=== PATIENT | female | born 1960 | race Caucasian/White ===

== ENCOUNTER 2019-09-30 20:05 | Inpatient (IN) | payer SELFPAY ==
[~2019-09-30] VITALS: Ht 167.6 cm; Wt 90.9 kg
[2019-09-30 20:20] VITALS: BP 160/90
[2019-09-30 20:35] LABS: HEMATOCRIT 49.5 % (37.0-47.0); HEMOGLOBIN 16.8 g/dl (12.0-16.0); MEAN CELL VOLUME 86.7 fl (81.0-99.0); MEAN CORPUSCULAR HGB 29.4 pg (27.0-31.0); MEAN CORPUSCULAR HGB CONC 33.9 g/dl (33.0-37.0); PLATELET COUNT AUTOMATED 330 10*3/uL (130-400); RED BLOOD COUNT 5.71 10*6/uL (4.10-5.10); RED CELL DISTRI WIDTH 12.9 % (0-14.5)
[2019-09-30 20:44] VITALS: BP 153/75
[2019-09-30 20:45] LABS: ACT PARTIAL THROMBO TIME 23.4 SECONDS (20.0-32.1); INTERNATIONAL NORM RATIO 0.9 (2.0-3.5)
[2019-09-30 20:51] LABS: ALBUMIN 3.8 gm/dl (3.1-4.5); ALKALINE PHOSPHATASE 111 U/L (45-117); BUN 16 mg/dl (7-24); CHLORIDE 103 mmol/L (98-107); CREATININE 0.81 mg/dL (0.55-1.02); POTASSIUM 5.6 mmol/L (3.5-5.1); SGOT/AST 39 IU/L (3-35); SGPT/ALT 26 U/L (12-78); SODIUM 134 mmol/L (136-145); TOTAL PROTEIN 8.3 gm/dL (6.4-8.2)
[2019-09-30 20:52] LABS: TROPONIN I < 0.015 ng/ml (<0.045)
[2019-09-30 20:56] LABS: ATYPICAL LYMPHS 1 % (0-0); BURR CELLS FEW; TOTAL CELLS COUNTED 100 #CELLS
[2019-09-30 20:57] LABS: PLATELET SUFFICIENCY NORMAL (NORMAL)
[2019-09-30 21:35] LABS: ARTERIAL BLOOD GAS PH 7.231 (7.35-7.45)
[2019-09-30 22:13] LABS: CLARITY CLEAR (CLEAR); COLOR YELLOW (YELLOW)
[2019-09-30 22:14] LABS: BILIRUBIN NEGATIVE (NEGATIVE); BLOOD 3+ (NEGATIVE); GLUCOSE 3+ (NEGATIVE); KETONE TRACE (NEGATIVE); LEUKO ESTERASE NEGATIVE (NEGATIVE); NITRITE NEGATIVE (NEGATIVE); SPECIFIC GRAVITY 1.025 (1.005-1.030); UROBILINOGEN 0.2 E.U./dl (0.2-1.0); WBC 0-2 wbc/hpf (0-5)
[2019-09-30 22:15] LABS: RBC 16-20 rbc/hpf (0-2)
[2019-09-30 22:35] VITALS: BP 95/58
[2019-09-30 23:00] VITALS: BP 98/57
[2019-10-01] VITALS (12 sets, daily range): BP systolic 97–138; BP diastolic 56–86
[2019-10-01 00:25] LABS: ABG BASE EXCESS -4.7 mmol/L (-2.0-2.0); ARTERIAL BLOOD GAS PH 7.354 (7.35-7.45)
[2019-10-01 06:02] LABS: ALBUMIN 3.1 gm/dl (3.1-4.5); ALKALINE PHOSPHATASE 86 U/L (45-117); BUN 16 mg/dl (7-24); CHLORIDE 105 mmol/L (98-107); PHOSPHOROUS 3.6 mg/dL (2.5-4.9); SGOT/AST 22 IU/L (3-35); SGPT/ALT 19 U/L (12-78); SODIUM 136 mmol/L (136-145); TOTAL PROTEIN 6.3 gm/dL (6.4-8.2)
[2019-10-01 06:13] LABS: POTASSIUM 3.8 mmol/L (3.5-5.1)
[2019-10-01 06:18] LABS: BASO # 0.1 10*3/uL (0.0-0.1); BASO % 0.4 % (0.0-1.0); EOS # 0.1 10*3/uL (0.0-0.4); EOS % 0.5 % (1.0-4.0); HEMATOCRIT 42.8 % (37.0-47.0); HEMOGLOBIN 14.1 g/dl (12.0-16.0); LYMPH # 2.1 10*3/uL (1.3-4.4); LYMPH % 14.1 % (27.0-41.0); MEAN CELL VOLUME 87.9 fl (81.0-99.0); MEAN CORPUSCULAR HGB CONC 32.9 g/dl (33.0-37.0); MONO # 1.2 10*3/uL (0.1-1.0); MONO % 7.7 % (3.0-9.0); NEUT # 11.5 10*3/uL (2.3-7.9); NEUT % 76.8 % (47.0-73.0); PLATELET COUNT AUTOMATED 294 10*3/uL (130-400); RED BLOOD COUNT 4.87 10*6/uL (4.10-5.10); RED CELL DISTRI WIDTH 13.1 % (0-14.5)
[2019-10-01 07:52] LABS: ABG BASE EXCESS -1.6 mmol/L (-2.0-2.0); ARTERIAL BLOOD GAS PH 7.409 (7.35-7.45)
[2019-10-02] VITALS (12 sets, daily range): BP systolic 103–129; BP diastolic 35–82
[2019-10-02 08:16] LABS: ABG BASE EXCESS 0.4 mmol/L (-2.0-2.0); ARTERIAL BLOOD GAS PH 7.452 (7.35-7.45)
[2019-10-02 10:34] LABS: BASO # 0.1 10*3/uL (0.0-0.1); BASO % 0.4 % (0.0-1.0); EOS # 0.3 10*3/uL (0.0-0.4); EOS % 2.3 % (1.0-4.0); HEMATOCRIT 39.6 % (37.0-47.0); LYMPH # 1.9 10*3/uL (1.3-4.4); LYMPH % 16.5 % (27.0-41.0); MEAN CELL VOLUME 87.8 fl (81.0-99.0); MEAN CORPUSCULAR HGB 28.8 pg (27.0-31.0); MEAN CORPUSCULAR HGB CONC 32.8 g/dl (33.0-37.0); MEAN PLATELET VOLUME 9.8 fl (9.6-12.3); MONO % 8.9 % (3.0-9.0); NEUT # 8.4 10*3/uL (2.3-7.9); NEUT % 71.6 % (47.0-73.0); PLATELET COUNT AUTOMATED 238 10*3/uL (130-400); RED BLOOD COUNT 4.51 10*6/uL (4.10-5.10); RED CELL DISTRI WIDTH 13.3 % (0-14.5); WHITE BLOOD COUNT 11.7 10*3/uL (4.8-10.8)
[2019-10-02 10:50] LABS: ALBUMIN 2.6 gm/dl (3.1-4.5); ALKALINE PHOSPHATASE 79 U/L (45-117); BUN 22 mg/dl (7-24); CHLORIDE 106 mmol/L (98-107); PHOSPHOROUS 2.7 mg/dL (2.5-4.9); POTASSIUM 3.3 mmol/L (3.5-5.1); SGOT/AST 16 IU/L (3-35); SGPT/ALT 16 U/L (12-78); SODIUM 137 mmol/L (136-145); TOTAL PROTEIN 5.8 gm/dL (6.4-8.2)
[2019-10-02 10:52] LABS: TROPONIN I 0.115 ng/ml (<0.045)
[2019-10-03] VITALS (10 sets, daily range): BP systolic 114–154; BP diastolic 62–88
[2019-10-03 06:17] LABS: BASO % 0.2 % (0.0-1.0); EOS # 0.1 10*3/uL (0.0-0.4); EOS % 0.4 % (1.0-4.0); HEMATOCRIT 40.9 % (37.0-47.0); HEMOGLOBIN 13.7 g/dl (12.0-16.0); LYMPH # 1.8 10*3/uL (1.3-4.4); LYMPH % 14.1 % (27.0-41.0); MEAN CELL VOLUME 85.6 fl (81.0-99.0); MEAN CORPUSCULAR HGB 28.7 pg (27.0-31.0); MEAN CORPUSCULAR HGB CONC 33.5 g/dl (33.0-37.0); MEAN PLATELET VOLUME 10.1 fl (9.6-12.3); MONO # 0.9 10*3/uL (0.1-1.0); MONO % 6.9 % (3.0-9.0); NEUT # 9.9 10*3/uL (2.3-7.9); NEUT % 77.9 % (47.0-73.0); PLATELET COUNT AUTOMATED 269 10*3/uL (130-400); RED BLOOD COUNT 4.78 10*6/uL (4.10-5.10); RED CELL DISTRI WIDTH 12.9 % (0-14.5); WHITE BLOOD COUNT 12.7 10*3/uL (4.8-10.8)
[2019-10-03 06:35] LABS: ALBUMIN 2.9 gm/dl (3.1-4.5); BUN 21 mg/dl (7-24); CHLORIDE 104 mmol/L (98-107); CREATININE 0.52 mg/dL (0.55-1.02); PHOSPHOROUS 3.2 mg/dL (2.5-4.9); SGOT/AST 17 IU/L (3-35); SGPT/ALT 19 U/L (12-78); SODIUM 138 mmol/L (136-145)
[2019-10-03 06:38] LABS: ALKALINE PHOSPHATASE 83 U/L (45-117); TOTAL PROTEIN 6.5 gm/dL (6.4-8.2)
[2019-10-03 06:40] LABS: POTASSIUM 3.4 mmol/L (3.5-5.1)
[2019-10-03 07:48] LABS: ARTERIAL BLOOD GAS PH 7.439 (7.35-7.45)
[2019-10-03 14:27] LABS: ABG BASE EXCESS 0.2 mmol/L (-2.0-2.0); ARTERIAL BLOOD GAS PH 7.442 (7.35-7.45)
[2019-10-04] VITALS: BP 94/51
[2019-10-04 04:00] VITALS: BP 110/71
[2019-10-04 04:17] LABS: BASO # 0.1 10*3/uL (0.0-0.1); BASO % 0.5 % (0.0-1.0); EOS # 0.4 10*3/uL (0.0-0.4); EOS % 2.8 % (1.0-4.0); HEMATOCRIT 39.1 % (37.0-47.0); HEMOGLOBIN 13.4 g/dl (12.0-16.0); LYMPH # 2.6 10*3/uL (1.3-4.4); LYMPH % 21.4 % (27.0-41.0); MEAN CELL VOLUME 85.9 fl (81.0-99.0); MEAN CORPUSCULAR HGB 29.5 pg (27.0-31.0); MEAN CORPUSCULAR HGB CONC 34.3 g/dl (33.0-37.0); MEAN PLATELET VOLUME 9.9 fl (9.6-12.3); MONO # 1.1 10*3/uL (0.1-1.0); MONO % 8.8 % (3.0-9.0); NEUT # 8.1 10*3/uL (2.3-7.9); NEUT % 66.1 % (47.0-73.0); PLATELET COUNT AUTOMATED 256 10*3/uL (130-400); RED BLOOD COUNT 4.55 10*6/uL (4.10-5.10); WHITE BLOOD COUNT 12.3 10*3/uL (4.8-10.8)
[2019-10-04 04:35] LABS: ALKALINE PHOSPHATASE 82 U/L (45-117); BUN 23 mg/dl (7-24); CHLORIDE 106 mmol/L (98-107); CREATININE 0.42 mg/dL (0.55-1.02); PHOSPHOROUS 2.2 mg/dL (2.5-4.9); SGOT/AST 25 IU/L (3-35); SGPT/ALT 18 U/L (12-78); SODIUM 141 mmol/L (136-145); TOTAL PROTEIN 6.7 gm/dL (6.4-8.2)
[2019-10-04 05:24] LABS: ABG BASE EXCESS 1.5 mmol/L (-2.0-2.0); ARTERIAL BLOOD GAS PH 7.51 (7.35-7.45)
[2019-10-04 08:00] VITALS: BP 134/79
[2019-10-04 12:00] VITALS: BP 131/74
[2019-10-04 15:28] VITALS: BP 127/72
[2019-10-04 20:00] VITALS: BP 141/85
[2019-10-05] VITALS: BP 128/84
[2019-10-05 04:00] VITALS: BP 126/92
[2019-10-05 06:19] LABS: BASO # 0.1 10*3/uL (0.0-0.1); BASO % 0.8 % (0.0-1.0); EOS # 0.6 10*3/uL (0.0-0.4); EOS % 5.8 % (1.0-4.0); HEMATOCRIT 41.8 % (37.0-47.0); HEMOGLOBIN 13.9 g/dl (12.0-16.0); MEAN CELL VOLUME 85.3 fl (81.0-99.0); MEAN CORPUSCULAR HGB 28.4 pg (27.0-31.0); MEAN CORPUSCULAR HGB CONC 33.3 g/dl (33.0-37.0); MEAN PLATELET VOLUME 9.8 fl (9.6-12.3); MONO % 9.3 % (3.0-9.0); NEUT # 5.7 10*3/uL (2.3-7.9); NEUT % 54.6 % (47.0-73.0); PLATELET COUNT AUTOMATED 289 10*3/uL (130-400); RED CELL DISTRI WIDTH 12.9 % (0-14.5); WHITE BLOOD COUNT 10.4 10*3/uL (4.8-10.8)
[2019-10-05 06:51] LABS: ALBUMIN 3.1 gm/dl (3.1-4.5); BUN 28 mg/dl (7-24); CHLORIDE 107 mmol/L (98-107); PHOSPHOROUS 2.6 mg/dL (2.5-4.9); POTASSIUM 3.6 mmol/L (3.5-5.1); SGOT/AST 19 IU/L (3-35); SGPT/ALT 20 U/L (12-78); SODIUM 139 mmol/L (136-145); TOTAL PROTEIN 7.2 gm/dL (6.4-8.2)
[2019-10-05 06:52] LABS: ALKALINE PHOSPHATASE 84 U/L (45-117)
[2019-10-05 08:00] VITALS: BP 126/80
[2019-10-05] MEDS ORDERED: ZITHROMAX250 MG PO (10:53)
[2019-10-05] MEDS ORDERED: OMNICEF300 MG PO (10:53)
== END 2019-10-05 11:46 | disposition home or self-care (01) | DRG 871 ==
LOC: ED 20:05 → 5E 22:26
PROVIDERS: Emergency Medicine; Internal Medicine Critical Care Medicine; Nurse Practitioner; Student in an Organized Health Care Education/Training Program; ADMIT Internal Medicine
PROC: 0BH17EZ Insertion of Endotracheal Airway into Trachea, Via Natural or Artificial Opening (ICD-10-PCS; principal; 2019-09-30)
PROC: 5A1945Z Respiratory Ventilation, 24-96 Consecutive Hours (ICD-10-PCS; principal; 2019-09-30)
DX: A41.9 Sepsis, unspecified organism (principal); J96.01 Acute respiratory failure with hypoxia; J18.9 Pneumonia, unspecified organism; E87.1 Hypo-osmolality and hyponatremia; J44.0 Chronic obstructive pulmonary disease with (acute) lower respiratory infection; E87.2 Acidosis; R65.20 Severe sepsis without septic shock; I11.0 Hypertensive heart disease with heart failure; I50.9 Heart failure, unspecified; E87.5 Hyperkalemia; E87.6 Hypokalemia; D72.819 Decreased white blood cell count, unspecified; Z20.828 Contact with and (suspected) exposure to other viral communicable diseases; E11.65 Type 2 diabetes mellitus with hyperglycemia; T50.2X5A Adverse effect of carbonic-anhydrase inhibitors, benzothiadiazides and other diuretics, initial encounter; Y92.238 Other place in hospital as the place of occurrence of the external cause

== ENCOUNTER 2019-10-11 13:38 | Emergency (ER) | payer SELFPAY ==
[~2019-10-11] VITALS: Ht 167.6 cm; Wt 90.7 kg
[~2019-10-11 13:38] MED LIST: OMNICEF300 MG PO; ZITHROMAX250 MG PO
[2019-10-11 15:15] VITALS: BP 138/80
[2019-10-11] MEDS ORDERED: NORCO 5-325 TA1 EACH PO (15:24)
[2019-10-11] MEDS ORDERED: IBUPROFEN600 MG PO (15:24)
== END 2019-10-11 16:49 | disposition home or self-care (01) ==
LOC: ED 13:38
DX: S82.831A Other fracture of upper and lower end of right fibula, initial encounter for closed fracture (principal); E11.9 Type 2 diabetes mellitus without complications; I11.0 Hypertensive heart disease with heart failure; I50.9 Heart failure, unspecified; Z79.2 Long term (current) use of antibiotics; W18.40XA Slipping, tripping and stumbling without falling, unspecified, initial encounter; Y93.89 Activity, other specified; Y92.238 Other place in hospital as the place of occurrence of the external cause; Y99.8 Other external cause status

== ENCOUNTER → 2019-10-23 | Outpatient (CLI) | payer SELFPAY ==
[~2019-10-23] MED LIST changes: +ELIQUIS5 M1 PO; +IBUPROFEN600 MG PO; +MAGNESIUM400 M1 PO; +NORCO 5-325 TA1 EACH PO; +POTASSIUM CHLO20 ME3 PO
== END | disposition home or self-care (01) ==
LOC: RAD 15:29
DX: M25.561 Pain in right knee (principal); R22.41 Localized swelling, mass and lump, right lower limb

== ENCOUNTER → 2019-10-27 | Outpatient (CLI) | payer SELFPAY ==
[2019-10-27 17:48] LABS: HEMATOCRIT 41.3 % (37.0-47.0); MEAN CELL VOLUME 82.4 fl (81.0-99.0); MEAN CORPUSCULAR HGB 29.1 pg (27.0-31.0); MEAN CORPUSCULAR HGB CONC 35.4 g/dl (33.0-37.0); MEAN PLATELET VOLUME 9.6 fl (9.6-12.3); RED BLOOD COUNT 5.01 10*6/uL (4.10-5.10); RED CELL DISTRI WIDTH 12.9 % (0-14.5); WHITE BLOOD COUNT 8.7 10*3/uL (4.8-10.8)
[2019-10-27 18:20] LABS: ALBUMIN 3.8 gm/dl (3.1-4.5); ALKALINE PHOSPHATASE 72 U/L (45-117); BUN 15 mg/dl (7-24); CHLORIDE 104 mmol/L (98-107); CHOLESTEROL 275 mg/dL (<200); CREATININE 0.54 mg/dL (0.55-1.02); HDL CHOLESTEROL 47 mg/dl (40-60); LDL CHOLESTEROL 187 mg/dL (9-159); SGOT/AST 13 IU/L (3-35); SGPT/ALT 21 U/L (12-78); SODIUM 139 mmol/L (136-145); TOTAL PROTEIN 7.2 gm/dL (6.4-8.2); TRIGLYCERIDES 206 mg/dl (<150); VLDL CHOLESTEROL 41 mg/dL (6-40)
[2019-10-27 18:26] LABS: VITAMIN D, 25-HYDROXY 35.9 ng/mL (30-100)
[2019-10-27 18:41] LABS: POTASSIUM 2.2 mmol/L (3.5-5.1)
== END ==
LOC: LAB 17:01
PROVIDERS: Family Medicine
DX: E11.9 Type 2 diabetes mellitus without complications (principal); E55.9 Vitamin D deficiency, unspecified; E78.00 Pure hypercholesterolemia, unspecified; R53.83 Other fatigue; G62.9 Polyneuropathy, unspecified

== ENCOUNTER 2019-10-28 15:46 | Inpatient (IN) | payer SELFPAY ==
[~2019-10-28] VITALS: Ht 167.6 cm; Wt 79.4 kg
[~2019-10-28 15:46] MED LIST changes: -ELIQUIS5 M1 PO; -MAGNESIUM400 M1 PO; -POTASSIUM CHLO20 ME3 PO
[2019-10-28 15:51] VITALS: BP 141/76
[2019-10-28 20:18] VITALS: BP 126/78
--- NOTE | 2019-10-28 20:18 | NUR ---
A 59, admitted to , under the services of Dr. TITO GIL,RAGHAV Matthew with a diagnosis of DVT. Chief complaint is SENT BY PRIMARY FOR LOW LABS. Patient arrived via stretcher from ER. Monitor applied. Initial assessment completed. Vital signs taken and recorded. DR. TITO GIL,RAGHAV Matthew notified of admission to the unit. Orders received. See assessment for past medical history, medications and allergies. Patient and/or family oriented to unit. [facility] visitation policy reviewed. Clothing/patient valuable form completed. KAREY DILLON
--- NOTE | 2019-10-28 20:46 | NUR ---
ORDER FROM DR FRANCIS AT THIS TIME
[2019-10-28 21:13] LABS: BASO # 0.1 10*3/uL (0.0-0.1); BASO % 0.8 % (0.0-1.0); EOS # 0.2 10*3/uL (0.0-0.4); EOS % 2.1 % (1.0-4.0); HEMATOCRIT 40.3 % (37.0-47.0); LYMPH # 3.8 10*3/uL (1.3-4.4); LYMPH % 41.5 % (27.0-41.0); MEAN CORPUSCULAR HGB 28.8 pg (27.0-31.0); MEAN CORPUSCULAR HGB CONC 34.2 g/dl (33.0-37.0); MEAN PLATELET VOLUME 9.6 fl (9.6-12.3); MONO # 0.8 10*3/uL (0.1-1.0); MONO % 8.5 % (3.0-9.0); NEUT # 4.2 10*3/uL (2.3-7.9); NEUT % 46.8 % (47.0-73.0); PLATELET COUNT AUTOMATED 267 10*3/uL (130-400)
[2019-10-28 21:31] LABS: BUN 13 mg/dl (7-24); CHLORIDE 109 mmol/L (98-107); CREATININE 0.47 mg/dL (0.55-1.02); POTASSIUM 2.7 mmol/L (3.5-5.1); SODIUM 141 mmol/L (136-145)
--- NOTE | 2019-10-28 21:42 | NUR ---
SPOKE WITH DR ANG REGARDING CONSULT. LABS REVIEWED AND ORDERS TAKEN
[2019-10-29] VITALS: BP 113/62; BP 118/78
--- NOTE | 2019-10-29 00:18 | NUR ---
DR FRANCIS MADE AWARE OF ANKLE XRAY, AND PATIENT NOT TOLERATED K RUNS. STATES NOT TO GIVE THE SECOND K RUN
--- NOTE | 2019-10-29 00:27 | NUR ---
MEDICATED WITH PRN TORADOL FOR C/O RIGHT FOOT PAIN. WILL MONITOR
--- NOTE | 2019-10-29 03:23 | NUR ---
PATIENT RESTING IN BED WITH NO S/S OF DISTRESS. MEDICATION SEEMS EFFECTIVE. BED IN LOWEST POSITION, CALL LIGHT IN REACH
[2019-10-29 06:19] LABS: BUN 15 mg/dl (7-24); CHLORIDE 109 mmol/L (98-107); CREATININE 0.59 mg/dL (0.55-1.02)
[2019-10-29 06:27] LABS: SODIUM 139 mmol/L (136-145)
[2019-10-29 08:00] VITALS: BP 118/80
--- NOTE | 2019-10-29 08:31 | NUR ---
IN PT ROOM AT THIS TIME TO COMPLETE ASSESSMENT. PT COMPLAINS OF LEFT LEG PAIN, AND HAS NO OTHER COMPLAINTS AT THIS TIME. PT IS UP IN HER BED EATING BREAKFAST WITH NO SIGNS OF DISTRESS. CALL LIGHT WITHIN REACH, WILL CONTINUE TO MONITOR
--- NOTE | 2019-10-29 08:49 | NUR ---
PHYSICAL THERAPY Nursing screen received and chart reviewed. Recommend PT evaluation if functional mobility declines. Thank you. Sloane Hicks,PT,DPT
--- NOTE | 2019-10-29 09:00 | NUR ---
Senior Financial Reporting Analyst in to talk to patient. Patient states lives at home with her . There are 5 outside steps in the home. Physician: Dr. Lupillo [facility] none Patient's level of ADLs: MINIMAL ASSIST Patient has working utilities: yes DME: walker Follow-up physician's appointment after d/c: she prefers to make her own follow up appt after discharge Does patient want to access PORTAL?: no Discharge plan discussed with patient. She was ambulating back from the bathroom with a walker. She states she lives at home with her . She is independent in her ADLs and ambulates with a walker at home. Discussed home health care services and she denies any home needs. When medically stable she will be discharged to home. She states her will provide transportation on discharge. SILVIO POZO
[2019-10-29 09:03] VITALS: BP 130/74
--- NOTE | 2019-10-29 10:06 | NUR ---
PT STATES THAT SHE IS HAVING PAIN IN HER RIGHT LEG RATING IT A 9/10. PRN TORADOL IV GIVEN AT THIS TIME. CALL LIGHT WITHIN REACH, WILL CONTINUE TO MONITOR
[2019-10-29 12:00] VITALS: BP 134/78
--- NOTE | 2019-10-29 13:27 | NUR ---
PT STATES THE TORADOL DID NOT HELP MUCH WITH HER PAIN. WILL CONTINUE TO MONITOR
[2019-10-29 16:00] VITALS: BP 136/80; BP 97/81
--- NOTE | 2019-10-29 17:29 | NUR ---
Shift chart check completed.
--- NOTE | 2019-10-29 18:09 | NUR ---
CALLED DR FRANCIS PER PT REQUEST OF NEEDING SOMETHING ASIDE FROM TORADOL FOR PAIN. WILL ADD ORDERS DESIRED
--- NOTE | 2019-10-29 18:18 | NUR ---
PT RATES HER PAIN IN HER RIGHT LEG A 10/10. PRN DILAUDID IV GIVEN AT THIS TIME. CALL LIGHT WITHIN REACH, WILL CONTINUE TO MONITOR
[2019-10-29 20:00] VITALS: BP 131/85
--- NOTE | 2019-10-29 23:55 | NUR ---
24 HR chart check completed.
[2019-10-30] VITALS: BP 118/78
--- NOTE | 2019-10-30 00:45 | NUR ---
PATIENT MEDICATED SLOWLY WITH DILAUDID PER PRN ORDER AND PATIENT REQUEST FOR C/O PAIN IN R. ANKLE FOOT. RATED PAIN A 10/10 WITH 10 BEING THE WORST. SEE EMAR. REINFORCED USE OF CALL LIGHT.
[2019-10-30 06:14] LABS: CHLORIDE 110 mmol/L (98-107); POTASSIUM 3.4 mmol/L (3.5-5.1); SODIUM 139 mmol/L (136-145)
[2019-10-30 06:24] LABS: BUN 17 mg/dl (7-24); CREATININE 0.43 mg/dL (0.55-1.02)
[2019-10-30 06:47] LABS: BILIRUBIN NEGATIVE (NEGATIVE); BLOOD NEGATIVE (NEGATIVE); CLARITY CLOUDY (CLEAR); COLOR YELLOW (YELLOW); GLUCOSE 2+ (NEGATIVE); KETONE NEGATIVE (NEGATIVE); LEUKO ESTERASE NEGATIVE (NEGATIVE); NITRITE NEGATIVE (NEGATIVE); UROBILINOGEN 0.2 E.U./dl (0.2-1.0)
[2019-10-30 06:48] LABS: BACTERIA 1+; URIC ACID CRYSTALS 1+
--- NOTE | 2019-10-30 07:31 | NUR ---
Received SNF order for patient. Notified Dr. Brandt as patient is self pay she is not able to go to a SNF nor have home health care services. Awaiting return call from Lyla from [employer] to see if she will qualify for assistance.
[2019-10-30 08:00] VITALS: BP 110/72; BP 124/74
--- NOTE | 2019-10-30 08:05 | NUR ---
PT REQUESTED DILAUDID FOR PAIN IN LOWER LEG, STATES "NOT BAD IT WAS, BUT ANY TIME I MOVE, I CANNOT GET COMFORTABLE." WILL MONITOR FOR EFFECTIVENESS.
--- NOTE | 2019-10-30 08:40 | NUR ---
DILAUDID EFFECTIVE FOR PAIN
[2019-10-30] MEDS ORDERED: MAGNESIUM400 M1 PO (09:15)
[2019-10-30] MEDS ORDERED: POTASSIUM CHLO20 ME3 PO (09:15)
[2019-10-30] MEDS ORDERED: ELIQUIS5 M1 PO (09:19)
--- NOTE | 2019-10-30 09:48 | NUR ---
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 OUTPATIENT PHARMACY HAS NEW RX READY. PT OKAY WITH ELIQUIS COST OF $87.25.
--- NOTE | 2019-10-30 11:32 | NUR ---
PT TELE OFF, TO BE DISCHARGED TODAY
[2019-10-30 12:00] VITALS: BP 130/78
--- NOTE | 2019-10-30 13:19 | NUR ---
Discharge instructions reviewed with patient. Patient receptive and verbalizes understanding. Follow-up care understood. Written instructions given to patient. iv removed. 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 pt has no questions on discharge at this time JEAN DORAN
--- NOTE | 2019-10-30 15:17 | NUR ---
PT DISCHARGED VIA WHEELCHAIR
== END 2019-10-30 15:17 | disposition home or self-care (01) | DRG 563 ==
LOC: ED 15:46 → 4E 18:45 → EDHOLD 18:45 → 4E 19:32
PROVIDERS: Emergency Medicine; ADMIT Internal Medicine
DX: S82.831A Other fracture of upper and lower end of right fibula, initial encounter for closed fracture (principal); I82.441 Acute embolism and thrombosis of right tibial vein; E87.6 Hypokalemia; E83.42 Hypomagnesemia; I10 Essential (primary) hypertension; E11.65 Type 2 diabetes mellitus with hyperglycemia; X58.XXXA Exposure to other specified factors, initial encounter; Y93.89 Activity, other specified; Y92.89 Other specified places as the place of occurrence of the external cause; Y99.8 Other external cause status

== ENCOUNTER → 2019-11-14 | Outpatient (CLI) | payer SELFPAY ==
[~2019-11-14] MED LIST changes: +ELIQUIS5 M1 PO; +MAGNESIUM400 M1 PO; +POTASSIUM CHLO20 ME3 PO
== END | disposition home or self-care (01) ==
LOC: RAD 17:06
DX: M47.816 Spondylosis without myelopathy or radiculopathy, lumbar region (principal); M47.817 Spondylosis without myelopathy or radiculopathy, lumbosacral region; M48.07 Spinal stenosis, lumbosacral region; M25.78 Osteophyte, vertebrae

== ENCOUNTER → 2020-02-25 | Outpatient (CLI) | payer SELFPAY | END | disposition home or self-care (01) | LOC: RAD 16:21 | DX: M47.816 Spondylosis without myelopathy or radiculopathy, lumbar region (principal); M48.061 Spinal stenosis, lumbar region without neurogenic claudication ==

== ENCOUNTER → 2023-02-20 | Outpatient (CLI) | payer OTHER ==
[~2023-02-20] MED LIST changes: +ASPIRIN ADULT L81 M2 PO; +BASAG SOL SC; +CYMBALTA30 MG PO; +EFFIENT10 M1 PO; +ENOXAPARIN80 MG/0.2 SC; +LACTULOSE20 GM/30 M NG; +Lasix80 MG PO; +METOPROLOL SUCC25 M2 PO; +MOTRIN IB200 M2 PO; +OMEPRAZOLE40 MG PO; +OZEMPIC0.25 MG/01 SQ; +POTASSIUM CHLO20 ME4 PO; +PROVENTIL HFA6.7 GM INH; +ROSUVASTATIN CA10 MG PO; +VISTARIL25 M2 PO; +XIFAXAN550 MG OGT; +ZESTORETIC 20-1 EACH PO; +ZOLOFT50 MG PO; +ZOSYN 3.373.375 GM/1 IV
[2023-02-20 11:07] LABS: BASO # 0.1 10*3/uL (0.0-0.1); BASO % 0.6 % (0.0-1.0); EOS # 0.5 10*3/uL (0.0-0.4); EOS % 5.1 % (1.0-4.0); HEMATOCRIT 29.4 % (37.0-47.0); LYMPH # 1.6 10*3/uL (1.3-4.4); LYMPH % 15.7 % (27.0-41.0); MEAN CORPUSCULAR HGB 27.5 pg (27.0-31.0); MEAN CORPUSCULAR HGB CONC 32.3 g/dl (33.0-37.0); MEAN PLATELET VOLUME 9.4 fl (9.6-12.3); MONO # 0.8 10*3/uL (0.1-1.0); MONO % 8.1 % (3.0-9.0); NEUT # 7.1 10*3/uL (2.3-7.9); NEUT % 70.2 % (47.0-73.0); PLATELET COUNT AUTOMATED 326 10*3/uL (130-400); RED BLOOD COUNT 3.46 10*6/uL (4.10-5.10); RED CELL DISTRI WIDTH 16.1 % (0-14.5); WHITE BLOOD COUNT 10.1 10*3/uL (4.8-10.8)
[2023-02-20 11:43] LABS: BUN 14 mg/dl (9-23); CHLORIDE 105 mmol/L (98-107); CHOLESTEROL 76 mg/dL (<200); LDL CHOLESTEROL 18 mg/dL (9-159); POTASSIUM 3.4 mmol/L (3.4-5.1); TRIGLYCERIDES 105 mg/dl (<150)
== END | disposition home or self-care (01) ==
LOC: LAB 10:49
PROVIDERS: ATTEND Internal Medicine Cardiovascular Disease
DX: I25.5 Ischemic cardiomyopathy (principal)

== ENCOUNTER 2023-07-04 15:26 | Emergency (ER) | payer OTHER ==
[~2023-07-04] VITALS: Ht 165.1 cm; Wt 94.3 kg
[2023-07-04 16:27] LABS: BASO % 0.1 % (0.0-1.0); LYMPH # 1.2 10*3/uL (1.3-4.4); LYMPH % 9.2 % (27.0-41.0); MEAN CELL VOLUME 85.4 fl (81.0-99.0); MEAN CORPUSCULAR HGB 24.5 pg (27.0-31.0); MEAN CORPUSCULAR HGB CONC 28.7 g/dl (33.0-37.0); MEAN PLATELET VOLUME 10.4 fl (9.6-12.3); MONO # 0.8 10*3/uL (0.1-1.0); MONO % 6.4 % (3.0-9.0); NEUT # 10.7 10*3/uL (2.3-7.9); NEUT % 83.6 % (47.0-73.0); NUCLEATED RED BLOOD CELL 0.2 % (0.0-0.0); PLATELET COUNT AUTOMATED 287 10*3/uL (130-400); RED BLOOD COUNT 4.45 10*6/uL (4.10-5.10); RED CELL DISTRI WIDTH 22.4 % (0-14.5); WHITE BLOOD COUNT 12.8 10*3/uL (4.8-10.8)
[2023-07-04 16:37] LABS: ACT PARTIAL THROMBO TIME 26.1 SECONDS (20.0-32.1)
[2023-07-04 16:48] LABS: ALKALINE PHOSPHATASE 117 U/L (46-116); BUN 24 mg/dl (9-23); CHLORIDE 110 mmol/L (98-107); LIPASE 23 U/L (12-53); POTASSIUM 3.9 mmol/L (3.4-5.1); SGPT/ALT 23 U/L (5-49); TOTAL PROTEIN 7.7 gm/dL (6.0-8.0)
[2023-07-04 21:09] VITALS: BP 112/68
== END 2023-07-04 22:18 | disposition short-term general hospital (02) ==
LOC: ED 15:26
PROVIDERS: Emergency Medicine
DX: R65.20 Severe sepsis without septic shock (principal); K81.0 Acute cholecystitis; I21.4 Non-ST elevation (NSTEMI) myocardial infarction; I10 Essential (primary) hypertension; E11.9 Type 2 diabetes mellitus without complications; Z90.49 Acquired absence of other specified parts of digestive tract; Z98.890 Other specified postprocedural states; Z20.822 Contact with and (suspected) exposure to COVID-19

== ENCOUNTER 2023-10-15 10:36 | Emergency (ER) | payer OTHER ==
[~2023-10-15] VITALS: Ht 167.6 cm; Wt 83.7 kg
[~2023-10-15 10:36] MED LIST changes: +ACETAMINOPHEN PO; +ALDACTONE25 MG PO; +AMOX-CLAV 875-1 EACH PO; +ATORVASTATIN CA40 M1 PO; +CARVEDILOL3.125 MG PO; +COZAAR25 M1 PO; +CYMBALTA60 MG PO; +FUROSEMIDE40 MG PO; +IRON325 M1 PO; +JARDIANCE10 MG PO; +LANTUS SOL100 UNIT/1 SC; +LYRICA75 M1 PO; +MELATONIN3 MG PO; +MIRTAZAPINE15 M2 PO; +PROTONIX TR40 M1 PO; +SENNA8.6 MG PO; +Vibra-Tab100 MG PO
[2023-10-15] MEDS ORDERED: SODIUM CHLORIDE 0.9% 1,000 ML IV SCH (10:55)
[2023-10-15 11:57] LABS: POTASSIUM 5.4 mmol/L (3.4-5.1); TOTAL PROTEIN 7.6 gm/dL (6.0-8.0)
[2023-10-15 12:02] LABS: ARTERIAL BLOOD GAS PH 7.377 (7.35-7.45)
[2023-10-15 12:03] LABS: ABG BASE EXCESS -11.4 mmol/L (-2.0-2.0)
[2023-10-15] MEDS ORDERED: Piperacillin Sodium/Tazobact 100 ML IV ONE (12:10)
[2023-10-15] MEDS ORDERED: Vancomycin Hydrochloride 250 ML IV ONE (12:15)
[2023-10-15 12:22] LABS: BASO % 0.2 % (0.0-1.0); LYMPH # 2.1 10*3/uL (1.3-4.4); MEAN CELL VOLUME 95.3 fl (81.0-99.0); MEAN CORPUSCULAR HGB 28.4 pg (27.0-31.0); MEAN CORPUSCULAR HGB CONC 29.8 g/dl (33.0-37.0); MEAN PLATELET VOLUME 11.1 fl (9.6-12.3); MONO % 6.9 % (3.0-9.0); NEUT # 11.5 10*3/uL (2.3-7.9); NEUT % 78.4 % (47.0-73.0); NUCLEATED RED BLOOD CELL 0.2 % (0.0-0.0); PLATELET COUNT AUTOMATED 223 10*3/uL (130-400); RED BLOOD COUNT 5.14 10*6/uL (4.10-5.10); RED CELL DISTRI WIDTH 17.3 % (0-14.5); WHITE BLOOD COUNT 14.7 10*3/uL (4.8-10.8)
[2023-10-15 12:41] LABS: BILIRUBIN 2+ (Negative); BLOOD Trace-Lysed (Negative); CLARITY Cloudy (Clear); COLOR Dark Yellow (Yellow); GLUCOSE Negative (Negative); KETONE Negative (Negative); LEUKO ESTERASE 2+ (Negative); NITRITE Negative (Negative)
[2023-10-15 12:51] LABS: BACTERIA 4+; WBC TNTC wbc/hpf (0-5)
[2023-10-15] MEDS ORDERED: VITAMIN B-1100 M1 PO (13:01)
[2023-10-15] MEDS ORDERED: ETOMIDATE 20 MG/10 ML VIAL IV ONE ×2 (13:25→21:06)
[2023-10-15] MEDS ORDERED: ROCURONIUM BROMIDE IV ONE (13:30)
[2023-10-15] MEDS ORDERED: ROCURONIUM BROMIDE 50 MG/5 ML SYRINGE IV ONE ×2 (13:30→21:06)
[2023-10-15] MEDS ORDERED: PROPOFOL 50 ML IV SCH (14:10)
[2023-10-15 15:30] VITALS: BP 127/63
[2023-10-15] MEDS ORDERED: Succinylcholine Chloride 200 MG/10 ML SYRINGE IV ONE (21:06)
== END 2023-10-15 16:00 | disposition short-term general hospital (02) ==
LOC: ED 10:36
PROVIDERS: Nurse Practitioner Family
DX: I46.9 Cardiac arrest, cause unspecified (principal); K83.09 Other cholangitis; R79.89 Other specified abnormal findings of blood chemistry; R65.20 Severe sepsis without septic shock; N39.0 Urinary tract infection, site not specified; N17.9 Acute kidney failure, unspecified; D64.9 Anemia, unspecified; E78.5 Hyperlipidemia, unspecified; I10 Essential (primary) hypertension; E11.65 Type 2 diabetes mellitus with hyperglycemia; E11.40 Type 2 diabetes mellitus with diabetic neuropathy, unspecified; Z98.890 Other specified postprocedural states